=== PATIENT | male | born 2000 ===

== ENCOUNTER 2019-10-24 13:46 | Emergency (ER) | payer BC ==
[~2019-10-24] VITALS: Ht 177.8 cm; Wt 72.7 kg
[2019-10-24 13:56] VITALS: BP 132/90; TEMP 98.1
[2019-10-24 15:30] VITALS: PULSE 82
== END 2019-10-24 15:33 | disposition home or self-care (01) ==
LOC: COL.ER 13:46
DX: S43.401A Unspecified sprain of right shoulder joint, initial encounter (principal); W10.9XXA Fall (on) (from) unspecified stairs and steps, initial encounter; Y92.009 Unspecified place in unspecified non-institutional (private) residence as the place of occurrence of the external cause